=== PATIENT | female | born 1945 | race Caucasian/White ===

== ENCOUNTER → 2020-03-16 | Outpatient (CLI) | payer MEDICARE, OTHER ==
[2020-03-17 12:41] LABS: Candida species (DNA Probe) Negative (NEGATIVE); G. vaginalis (DNA Probe) Negative (NEGATIVE); T. vaginalis (DNA Probe) Negative (NEGATIVE)
== END | disposition home or self-care (01) ==
LOC: LAB EV 14:09 → LAB SHORT 14:09
PROVIDERS: Physician Assistant
DX: N76.0 Acute vaginitis (principal); R82.79 Other abnormal findings on microbiological examination of urine
CPT/HCPCS: 87077; 87086; 87186; 87480; 87510; 87660

== ENCOUNTER 2023-04-26 06:05 | Inpatient (IN) | payer MEDICARE, OTHER ==
[~2023-04-26] VITALS: Ht 167.6 cm; Wt 54.2 kg
[2023-04-26 07:19] LABS: BASOPHILS ABSOLUTE AUTO 0.05 K/mm3 (0.00-0.23); BASOPHILS PERCENT AUTO 1 % (0-2); EOSINOPHILS PERCENT AUTO 3 % (0-6); Hematocrit 43.9 % (33.0-51.0); Hemoglobin 15.3 g/dL (11.5-16.0); IMMATURE GRAN ABSOLUTE AUTO 0.01 K/mm3 (0.00-0.10); IMMATURE GRAN PERCENT AUTO 0 % (0-1); LYMPHOCYTES ABSOLUTE AUTO 1.56 K/mm3 (0.84-5.20); LYMPHOCYTES PERCENT AUTO 39 % (21-46); MONOCYTES ABSOLUTE AUTO 0.35 K/mm3 (0.16-1.47); MONOCYTES PERCENT AUTO 9 % (4-13); Mean Corpuscular HGB 31.5 pg (26.0-34.0); Mean Corpuscular HGB Conc 34.9 g/dL (31.5-36.5); Mean Corpuscular Volume 91 fL (80-100); Mean Platelet Volume 10.3 fL (9.1-12.4); NEUTROPHILS ABSOLUTE AUTO 1.95 K/mm3 (1.96-9.15); NEUTROPHILS PERCENT AUTO 49 % (41-73); Platelet Count 203 K/mm3 (150-400); RDW Coefficient Variation 12.8 % (11.7-14.2); RDW Standard Deviation 42.7 fL (35.1-46.3); Red Blood Cell Count 4.85 M/mm3 (3.80-5.20); White Blood Cell Count 4.02 K/mm3 (4.00-11.30)
[2023-04-26 07:36] LABS: Albumin/Globulin Ratio 1.3 (0.8-1.8); Bilirubin, Total 0.6 mg/dL (0.1-1.0); Bun/Creatinine Ratio 23.1 (12.0-20.0); Creatinine, Blood 0.56 mg/dL (0.40-1.00); Globulin, Blood 3.1 g/dL (2.2-4.0); Potassium, Blood 3.8 mmol/L (3.5-5.5); Total Protein, Blood 7.1 g/dL (6.4-8.2)
[2023-04-26 08:09] LABS: International Normalized Ratio 1.03; Prothrombin Time Results 10.8 Sec (9.7-11.5)
[2023-04-26 08:10] LABS: Source, Urine Foley catheter
[2023-04-26 08:14] LABS: Bilirubin, Urine Neg (Neg); Blood, Urine Neg (Neg); Glucose Qualitative, Urine Neg (Neg); Ketones, Urine Neg (Neg); Leukocyte Esterase, Urine Neg (Neg); Nitrite, Urine Neg (Neg); Protein, Urine Neg (Neg); Urobilinogen, Urine NORM (Normal)
[2023-04-26 08:25] LABS: Appearance, Urine Clear (Clear); Color, Urine Pale Yellow (P-Yellow)
[2023-04-26 11:15] VITALS: BP 160/85
--- NOTE | 2023-04-26 16:33 | NUR ---
1100-PT ARRIVED TO ROOM VIA STRETCHER FROM ER, A/O X 4, PLEASANT/COOPERATIVE. PT ORIENTED TO ROOM, CALL LIGHT AND STATES UNDERSTANDING. PT'S BELONGINGS IN BEDSIDE TABLE. PT NPO AT THIS TIME. INITIAL ADMISSION ASSESSMENT COMPLETE. PT REPORTS SHE IS CONCERNED ABOUT HER CAT AT HOME, HAS NO ONE TO FEED/CHECK ON CAT. THIS RN FOUND PHONE NUMBER OF PT'S [employer] AND PHONE FOR PT, WHO LEFT MESSAGE FOR [employer]. 1400-DR RJ GILLESPIE ON PT. NO SURGICAL INTERVNETION TODAY. PT PROVIDED WITH PO SNACK, DIET ORDERED FOR DINNER. 0-PT MEDICATED PER NOV
[2023-04-26 16:49] VITALS: BP 118/65
[2023-04-26 19:05] VITALS: BP 139/79
[2023-04-27] VITALS (15 sets, daily range): BP systolic 123–171; BP diastolic 72–83
[2023-04-27 05:34] LABS: BASOPHILS ABSOLUTE AUTO 0.03 K/mm3 (0.00-0.23); BASOPHILS PERCENT AUTO 1 % (0-2); EOSINOPHILS ABSOLUTE AUTO 0.01 K/mm3 (0.00-0.68); EOSINOPHILS PERCENT AUTO 0 % (0-6); Hematocrit 36.8 % (33.0-51.0); Hemoglobin 12.8 g/dL (11.5-16.0); IMMATURE GRAN ABSOLUTE AUTO 0.02 K/mm3 (0.00-0.10); IMMATURE GRAN PERCENT AUTO 0 % (0-1); LYMPHOCYTES ABSOLUTE AUTO 0.81 K/mm3 (0.84-5.20); LYMPHOCYTES PERCENT AUTO 14 % (21-46); MONOCYTES ABSOLUTE AUTO 0.53 K/mm3 (0.16-1.47); MONOCYTES PERCENT AUTO 9 % (4-13); Mean Corpuscular HGB 31.5 pg (26.0-34.0); Mean Corpuscular HGB Conc 34.8 g/dL (31.5-36.5); Mean Corpuscular Volume 91 fL (80-100); Mean Platelet Volume 10.4 fL (9.1-12.4); NEUTROPHILS ABSOLUTE AUTO 4.56 K/mm3 (1.96-9.15); NEUTROPHILS PERCENT AUTO 77 % (41-73); Platelet Count 183 K/mm3 (150-400); RDW Coefficient Variation 12.9 % (11.7-14.2); RDW Standard Deviation 43.3 fL (35.1-46.3); Red Blood Cell Count 4.06 M/mm3 (3.80-5.20); White Blood Cell Count 5.96 K/mm3 (4.00-11.30)
[2023-04-27 05:55] LABS: Albumin, Blood 3.2 g/dL (3.4-5.0); Albumin/Globulin Ratio 1.2 (0.8-1.8); Bilirubin, Total 0.9 mg/dL (0.1-1.0); Bun/Creatinine Ratio 27.4 (12.0-20.0); Calcium, Blood 8.2 mg/dL (8.5-10.1); Creatinine, Blood 0.58 mg/dL (0.40-1.00); Globulin, Blood 2.6 g/dL (2.2-4.0); Potassium, Blood 3.8 mmol/L (3.5-5.5); Total Protein, Blood 5.8 g/dL (6.4-8.2)
--- NOTE | 2023-04-27 07:39 | NUR ---
SUMMARY PT PLANS FOR OR TODAY.
--- NOTE | 2023-04-27 12:56 | NUR ---
PATIENT JUST LEFT FOR THE OR.
--- NOTE | 2023-04-27 14:29 | NUR ---
PATIENT WAS EDUCATED ON IGNITION SOURCES AND RISK OF INJURY WITH OXYGEN IN USE. PATIENT VERBALIZED UNDERSTANDING OF IGNITION SOURCES AND HAD NO FURTHER QUESTIONS AT THIS TIME.
--- NOTE | 2023-04-27 17:33 | NUR ---
PATIENT CAME BACK FROM PACU TODAY AT 1730. POD 0 LEFT POSTERIOR TOTAL HIP PATIENT IS A&OX4. VS ARE WNL AND IS ON RA. PATIENT DENIES PAIN AT THIS TIME. HER LEFT HIP HAS X2 GAUZE WITH FOAM TAPE THAT ARE C/D/I. SHE IS ABLE TO MOVE ALL FINGERS AND TOES. PATIENT DENIES NUMBNESS OR TINGLING IN ALL EXTREMITIES. PEDAL PULSES ARE STRONG AND WARM TO TOUCH. PATIENT IS TOLERATING SMALL AMOUNTS OF PO INTAKE. PATIENT IS LAYING IN BED WITH CALL LIGHT IN REACH.
[2023-04-28] VITALS (13 sets, daily range): BP systolic 90–155; BP diastolic 57–86
[2023-04-28 04:44] LABS: BASOPHILS ABSOLUTE AUTO 0.01 K/mm3 (0.00-0.23); BASOPHILS PERCENT AUTO 0 % (0-2); EOSINOPHILS PERCENT AUTO 0 % (0-6); Hematocrit 30.1 % (33.0-51.0); Hemoglobin 10.5 g/dL (11.5-16.0); IMMATURE GRAN ABSOLUTE AUTO 0.03 K/mm3 (0.00-0.10); IMMATURE GRAN PERCENT AUTO 0 % (0-1); LYMPHOCYTES ABSOLUTE AUTO 0.63 K/mm3 (0.84-5.20); LYMPHOCYTES PERCENT AUTO 7 % (21-46); MONOCYTES ABSOLUTE AUTO 0.73 K/mm3 (0.16-1.47); MONOCYTES PERCENT AUTO 9 % (4-13); Mean Corpuscular HGB 31.5 pg (26.0-34.0); Mean Corpuscular HGB Conc 34.9 g/dL (31.5-36.5); Mean Corpuscular Volume 90 fL (80-100); Mean Platelet Volume 10.5 fL (9.1-12.4); NEUTROPHILS ABSOLUTE AUTO 7.22 K/mm3 (1.96-9.15); NEUTROPHILS PERCENT AUTO 84 % (41-73); Platelet Count 163 K/mm3 (150-400); Red Blood Cell Count 3.33 M/mm3 (3.80-5.20); White Blood Cell Count 8.62 K/mm3 (4.00-11.30)
--- NOTE | 2023-04-28 04:56 | NUR ---
SHIFT SUMMARY PT HAS BEEN COMFORTABLE DURING SHIFT. PT DRESSINGS ARE C/D/I. PT HAS BEEN SLEEPING WITHOUT ISSUE. PT CURRENTLY SLEEPING AND IN NO DISTRESS. CALL LIGHT IN REACH.
[2023-04-28 05:10] LABS: Creatinine, Blood 0.54 mg/dL (0.40-1.00); Magnesium, Blood 1.6 mg/dL (1.6-2.4); Potassium, Blood 3.8 mmol/L (3.5-5.5)
--- NOTE | 2023-04-28 13:32 | NUR ---
Pt. is awake in bed and welcomes my visit. Pt. is pleasant but a little guaraded at first. Facilitated a life review. Listened with empathy, interest and a calming presence. Pt. displays evidence of increased engagement and trust. Rapport is established. When a friend came in to visit, I excused myself. Pt. verbalized gratitude for the spiritual care visit and welcomed this physics faculty member to return.
--- NOTE | 2023-04-28 15:38 | NUR ---
SHIFT SUMMARY PT POD 1 L POSTERIOR FRAN. BULKY SURGICAL DRESSING TO L POST HIP C/D/I. PT PAIN WELL MANAGED WITH TYLENOL. PT HAS HAD TWO EVENTS OF BECOMING LIGHTHEADED AND UNRESPONSIVE WHILE WORKING WITH THERAPY, MD AWARE. LAST EVENT AT APROX 1600, NEW ORDER FOR TELEMETRY. TELEMETRY CONFIRMED AT APROX 1641. PT IS UP TO CHAIR AND HAS BEEN 1 ASSIST TO BSC WITH NO EPISODES. PLAN TO WORK W/THERAPY TOMORROW.
[2023-04-29 00:04] VITALS: BP 126/70
--- NOTE | 2023-04-29 00:09 | NUR ---
SYNCOPE: PT UP TO BSC, PT SAT ON COMMODE FOR SEVERAL MINUTES DENIED DIZZINESS WHEN FIRST UP AND WHILE SITTING. PT REP FEELING DIZZY WHEN AMB BACK TO BED, BECAME SLOWER TO RESPOND, LEGS BUCKLED. PT ASSISTED BACK TO BED BY 3 NURSING STAFF. PT MORE ALERT, REP DIZZINESS RESOLVED BY TIME SHE WAS BACK IN BED. HR NOTED TO INC TO 117 PER TELE MONITOR JUST PRIOR TO PT LEGS BUCKLING. HR 91 BY TIME PT LAYED BACK INTO BED, REMAINED SINUS RHYTHM PER TELE. VITALS OBTAINED, WNL. PT DENIED CP/PRESSURE DURING EVENT, REP DIZZINESS ONLY SX.
[2023-04-29 04:01] VITALS: BP 117/69
[2023-04-29 04:18] LABS: BASOPHILS ABSOLUTE AUTO 0.02 K/mm3 (0.00-0.23); BASOPHILS PERCENT AUTO 0 % (0-2); EOSINOPHILS ABSOLUTE AUTO 0.01 K/mm3 (0.00-0.68); EOSINOPHILS PERCENT AUTO 0 % (0-6); Hemoglobin 10.2 g/dL (11.5-16.0); IMMATURE GRAN ABSOLUTE AUTO 0.03 K/mm3 (0.00-0.10); IMMATURE GRAN PERCENT AUTO 0 % (0-1); LYMPHOCYTES ABSOLUTE AUTO 0.75 K/mm3 (0.84-5.20); LYMPHOCYTES PERCENT AUTO 8 % (21-46); MONOCYTES ABSOLUTE AUTO 0.85 K/mm3 (0.16-1.47); MONOCYTES PERCENT AUTO 9 % (4-13); Mean Corpuscular HGB 31.4 pg (26.0-34.0); Mean Corpuscular HGB Conc 35.2 g/dL (31.5-36.5); Mean Corpuscular Volume 89 fL (80-100); Mean Platelet Volume 10.3 fL (9.1-12.4); NEUTROPHILS ABSOLUTE AUTO 7.74 K/mm3 (1.96-9.15); NEUTROPHILS PERCENT AUTO 82 % (41-73); Platelet Count 146 K/mm3 (150-400); RDW Coefficient Variation 12.9 % (11.7-14.2); RDW Standard Deviation 42.5 fL (35.1-46.3); Red Blood Cell Count 3.25 M/mm3 (3.80-5.20)
[2023-04-29 04:35] LABS: Albumin, Blood 2.7 g/dL (3.4-5.0); Anion Gap 3 mmol/L (6-16); Blood Urea Nitrogen 13 mg/dL (8-24); Bun/Creatinine Ratio 29.8 (12.0-20.0); CO2, Blood 27 mmol/L (21-32); Calcium, Blood 7.9 mg/dL (8.5-10.1); Chloride, Blood 101 mmol/L (98-108); Creatinine, Blood 0.44 mg/dL (0.40-1.00); Glomerular Filtration Rate 98 (60-); Glucose, Blood 126 mg/dL (70-99); Magnesium, Blood 1.9 mg/dL (1.6-2.4); Potassium, Blood 3.4 mmol/L (3.5-5.5); Sodium, Blood 131 mmol/L (136-145)
--- NOTE | 2023-04-29 07:08 | NUR ---
POD 2 S/P L FRAN. PT VSS; HR SINUS 70-90'S PER TELE MONITOR. ORTHOSTATIC BP NEGATIVE. PT HAD 1 SYNCOPAL EPISODE (SEE PREV NOTE), WAS ABLE TO GET UP TO BSC THIS AM AND ELVER WELL. PO FLUIDS ENC, PT VOIDING URINE W/O DIFFICULTY, DENIED N/V. PT REP PAIN MINIMAL, ONLY AGREED TO TAKE 1 500 MG TYLENOL TAB. DRESSING CDI. PULSES AND CAP REFILL WNL, PT REP SENSATION AT BASELINE. PLAN TO MOBILIZE W/PT AND AWAIT DC PLANNING.
[2023-04-29 08:01] VITALS: BP 139/68
--- NOTE | 2023-04-29 09:18 | NUR ---
THIS NURSE RECIEVED A CALL FROM [employer] REPORTING THAT THE PATIENTS HEART RATE WENT INTO SVT SUSTAINING 160 BPM FOR 6 SECONDS. THIS NURSE WENT TO CHECK ON THE PATIENT AND SHE IS LAYING IN BED WITH CALL LIGHT IN REACH AND DENIED HAVING CHEST PAIN/SOB/PALPATATIONS. PATIENTS OXYGEN SATS REMAINED >90% ON RA. THIS NURSE THEN CALLED DR. JUAN AND REPORTED TO HIM THIS NEW EVENT. DR. JUAN THEN ORDERED AN EKG, AN ECHO, AND HE WOULD PUT IN OTHER MEDICATION ORDERS FOR THE PATIENT TO RECIEVE STAT. THIS NURSE IS AWAITING FOR ORDERS TO BE PLACED.
[2023-04-29 13:03] VITALS: BP 142/86
--- NOTE | 2023-04-29 15:45 | NUR ---
SHIFT SUMMARY: POD 2 LEFT TOTAL HIP- POSTERIOR PATIENT IS A&OX4. VS AT THIS TIME ARE WNL AND IS ON RA. PATIENT HAS NOT HAD ANOTHER EPISODE OF SVT SINCE THIS AM (SEE OTHER NOTES). ECHO HAS BEEN DONE BUT IS NOT OFFICIALLY READ YET. SHE IS A SBA WITH FWW AND GAIT BELT. HER LEFT HIP HAS 2 AQUACELS THAT ARE C/D/I THAT DR. MARKS PLACED THIS MORNING. SHE IS TOLERATING PO INTAKE AND IS VOIDING. SHE IS SITTING UP IN THE RECLINER WITH LEGS ELEVATED AND CALL LIGHT IN REACH.
[2023-04-29 17:18] VITALS: BP 124/82
[2023-04-29 20:39] VITALS: BP 130/76
[2023-04-30 02:18] VITALS: BP 141/88
--- NOTE | 2023-04-30 03:03 | NUR ---
SHIFT SUMMARY NO ACUTE CHANGES TO REPORT OVERNIGHT, PT HAS RESTED OFF AND ON. MEDICATED FOR PAIN X1 WITH SCHEDULED TYLENOL. DRESSING INTACT TO LEFT HIP. NO ACUTE CHANGES ON TELE, VITALS ARE STABLE. PLAN OF CARE REMAINS UNCHANGED. BED IN LOWEST POSITION, CALL LIGHT WITHIN REACH.
[2023-04-30 07:19] VITALS: BP 142/78
--- NOTE | 2023-04-30 07:35 | NUR ---
SUMMARY ASSUMED CARE OF PT AT 0330. NO ACUTE CHANGES. REPORTS MINIMAL DISCOMFORT.
[2023-04-30 11:57] LABS: SARS-Cov-2 (COVID-19) PCR, MMC NEGATIVE (NEGATIVE)
[2023-04-30 15:11] VITALS: BP 112/66
--- NOTE | 2023-04-30 15:45 | NUR ---
DISCHARGE POD 3 L FRAN. ALTHEA SIMPSON C/D/I. PATIENT DENIES PAIN. AMBULATING WELL SBA W/ FWW & GB. EATING, DRINKING, & VOIDING WELL. REPORT CALLED TO NURSE AYANNA AT [facility]. PAIENT ESCORTED OUT VIA W/C WITH TRANSPORT.
== END 2023-04-30 15:40 | DRG 522 ==
LOC: ER 06:05 → SURS 07:45
PROVIDERS: Emergency Medicine; Family Medicine; Orthopaedic Surgery; ADMIT Internal Medicine
PROC: 0T9B70Z Drainage of Bladder with Drainage Device, Via Natural or Artificial Opening (ICD-10-PCS; principal; 2023-04-26)
PROC: 0SRB04A Replacement of Left Hip Joint with Ceramic on Polyethylene Synthetic Substitute, Uncemented, Open Approach (ICD-10-PCS; 2023-04-27)
DX: S72.002A Fracture of unspecified part of neck of left femur, initial encounter for closed fracture (principal); I47.1 Supraventricular tachycardia; R55 Syncope and collapse; I10 Essential (primary) hypertension; E55.9 Vitamin D deficiency, unspecified; Z20.822 Contact with and (suspected) exposure to COVID-19; W10.8XXA Fall (on) (from) other stairs and steps, initial encounter; Y93.01 Activity, walking, marching and hiking; Z98.890 Other specified postprocedural states; Z88.6 Allergy status to analgesic agent
CPT/HCPCS: 36415; 51702; 72170; 73502; 80048; 80053; 80069; 81003; 83735; 85025; 85610; 85730; 93005; 93010; 93246; 93306; 96374-59; 97110; 97116; 97161; 97166; 97530; 97535; 99285-25; A9270; C1713; C1776; J0690; J1100; J1170; J1650; J2371; J2405; J2704; J3010; J3370; J7030; J7060; J7120; U0002

== ENCOUNTER → 2025-04-18 | Outpatient (CLI) | payer MEDICARE, OTHER ==
[~2025-04-18] MED LIST: ACET325 PO; ASPI81CH PO
== END | disposition home or self-care (01) ==
LOC: LAB SHORT 12:47 → LAB 12:47
DX: N39.0 Urinary tract infection, site not specified (principal)
CPT/HCPCS: 87086